=== PATIENT | male | born 1990 | race African-American/Black ===

== ENCOUNTER 2023-10-11 07:27 | Emergency (ER) | payer MEDICAID ==
[~2023-10-11] VITALS: Ht 170.2 cm; Wt 60.0 kg
[2023-10-11 07:51] VITALS: BP 121/46; PULSE 84; RESP 16; TEMP 98.5; O2SAT 98
[2023-10-11] MEDS: IBUPROFEN 600MG TABLET PO ONE (09:38)
[2023-10-11] MEDS: LIDOCAINE HCL/PF 1% 10 MG/ML 5ML VIAL INFIL ONE (09:38)
[2023-10-11] MEDS ORDERED: CEPH500T MT (09:39)
[2023-10-11] MEDS ORDERED: MUPI15CR11 TP (09:39)
== END 2023-10-11 08:08 | disposition home or self-care (01) ==
LOC: ER 07:27
DX: L03.011 Cellulitis of right finger (principal)
CPT/HCPCS: 73140; 10060; 99283; J3490; Z7610 ×2